=== PATIENT | male | born 1945 | race Caucasian/White ===

== ENCOUNTER 2017-03-17 09:49 | Emergency (ER) | payer BC, OTHER ==
[2017-03-17 10:21] VITALS: BP 121/56
--- NOTE | 2017-03-17 12:14 | UC ---
Respiratory Complaint HPI - HPI Summary HPI Summary: head congestion began 03/11 chest congestion and cough began 03/14 now coughing so much he cannot sleep - History of Current Complaint Chief Complaint: UCGeneralIllness Stated Complaint: CONGESTED,COUGH Time Seen by Provider: 03/17/17 12:11 Hx Obtained From: Patient Onset/Duration: Gradual Onset, Lasting Days - 6 days, Worse Since - past 3 days Timing: Constant Severity Initially: Mild Severity Currently: Moderate Pain Intensity: 5 Pain Scale Used: 0-10 Numeric Character: Cough: Productive Aggravating Factors: Deep Breaths, Recumbent Position Alleviating Factors: Nothing Associated Signs And Symptoms: Positive: URI, Nasal Congestion, Sinus Discomfort - Allergies/Home Medications Allergies/Adverse Reactions: Allergies Allergy/AdvReac Type Severity Reaction Status Date / Time No Known Allergies Allergy Verified 03/17/17 10:11 PMH/Surg Hx/FS Hx/Imm Hx Previously Healthy: Yes - Surgical History Surgical History: None - Family History Known Family History: Positive: None - Social History Occupation: Retired Lives: With Family Alcohol Use: None Substance Use Type: None Smoking Status (MU): Never Smoked Tobacco - Immunization History Most Recent Influenza Vaccination: NOT UTD Review of Systems Constitutional: Chills, Fatigue Skin: Negative Eyes: Negative ENT: Nasal Discharge, Sinus Congestion Respiratory: Cough Cardiovascular: Negative Gastrointestinal: Negative Genitourinary: Negative Motor: Negative Neurovascular: Negative Musculoskeletal: Negative Neurological: Negative Psychological: Negative Is Patient Immunocompromised?: No All Other Systems Reviewed And Are Negative: Yes Physical Exam Triage Information Reviewed: Yes Appearance: Well-Appearing, No Pain Distress, Well-Nourished Vital Signs: Initial Vital Signs Temp 96.8 F 03/17/17 10:04 Pulse 84 03/17/17 10:04 Resp 18 03/17/17 10:04 BP 121/56 03/17/17 10:04 Pulse Ox 99 03/17/17 10:04 Vital Signs Reviewed: Yes Eye Exam: Normal Eyes: Positive: Conjunctiva Clear ENT Exam: Normal ENT: Positive: Normal ENT inspection, Hearing grossly normal, Pharynx normal, Nasal congestion, Nasal drainage, TMs normal, Uvula midline. Negative: Tonsillar swelling, Tonsillar exudate, Trismus, Muffled voice, Hoarse voice, Dental tenderness, Sinus tenderness Dental Exam: Normal Neck exam: Normal Neck: Positive: Supple, Nontender, No Lymphadenopathy Respiratory Exam: Normal Respiratory: Positive: Chest non-tender, Lungs clear, Normal breath sounds, No respiratory distress, No accessory muscle use Cardiovascular Exam: Normal Cardiovascular: Positive: RRR, No Murmur, Pulses Normal, Brisk Capillary Refill Musculoskeletal Exam: Normal Musculoskeletal: Positive: Strength Intact, ROM Intact, No Edema Neurological Exam: Normal Neurological: Positive: Alert, Muscle Tone Normal Psychological Exam: Normal Skin Exam: Normal UC Diagnostic Evaluation - Laboratory O2 Sat by Pulse Oximetry: 99 Respiratory Course/Dx - Course Course Of Treatment: Increase fluids, zithromax, tessalon, robitussin and Codiene follow with pcp prn - Differential Dx/Diagnosis Provider Diagnoses: Acute Bronchitis Discharge - Discharge Plan Condition: Stable Disposition: HOME Prescriptions: Azithromycin TAB* [Zithromax TAB (Z-SHAHAB) 250 mg #6 tabs] 2 tab PO .TODAY, THEN 1 DAILY #1 shahab Benzonatate [TESSALON 200 MG CAP] 200 mg PO Q6H PRN #30 cap PRN Reason: Cough Guaifenesin-Codeine [Cheratussin AC] 5 - 10 syp PO Q6H #90 ml MDD 40ml Patient Education Materials: Acute Bronchitis (ED) Referrals: Gabriella Mckinney [Primary Care Provider] - If Needed
== END 2017-03-17 12:35 | disposition home or self-care (01) ==
LOC: UCEAST 09:49
DX: J20.9 Acute bronchitis, unspecified (principal)
CPT/HCPCS: 99212; G0463